=== PATIENT | female | born 1945 | race American Indian/Alaskan Native ===

== ENCOUNTER 2017-11-27 14:39 | Emergency (ER) | payer MEDICARE, OTHER ==
[2017-11-27] MEDS ORDERED: CATAPRES PO ONE (15:27)
[2017-11-27] MEDS ORDERED: CATAPRES ONE (15:30)
--- NOTE | 2017-11-27 16:47 | XRay Report ---
FINAL REPORT PROCEDURE: XR CHEST ROUTINE 2V TECHNIQUE: PA and lateral chest radiographs were obtained. CPT 22410 HISTORY: Shortness of breath. COMPARISON: No prior studies are available for comparison. FINDINGS: Heart: The heart size is top-normal. Mediastinum/Vessels: Aortic calcification tortuosity. Lungs/Pleural space: 6 millimeter density in the right apex. Bony thorax: Mild degenerative changes of the spine. Other: IMPRESSION: The heart size is top-normal. Aortic calcification and tortuosity. 6 millimeter density in the right apex, could represent confluence of shadows and/or be osseous, cannot exclude pulmonary nodule. Consider chest CT.
[2017-11-27 16:50] LABS: Basophils % (Auto) 0.7 % (0.0-1.8); Eosinophils # (Auto) 0.2 K/mm3 (0.0-0.4); Eosinophils % (Auto) 3.5 % (0.0-4.3); Hematocrit 38.6 % (30.3-42.9); Hemoglobin 12.5 gm/dl (10.1-14.3); Lymphocytes # (Auto) 1.7 K/mm3 (1.2-5.4); Lymphocytes % (Auto) 24.3 % (13.4-35.0); Mean Corpuscular HGB Conc 32 % (30-34); Mean Corpuscular Hemoglobin 26 pg (28-32); Mean Corpuscular Volume 80 fl (79-97); Monocytes # (Auto) 0.6 K/mm3 (0.0-0.8); Monocytes % (Auto) 8.7 % (0.0-7.3); Platelet Count 235 K/mm3 (140-440); Red Blood Count 4.81 M/mm3 (3.65-5.03); Red Cell Distribution Width 16.2 % (13.2-15.2)
[2017-11-27 17:27] LABS: Calcium 10.1 mg/dL (8.4-10.2)
--- NOTE | 2017-11-27 18:55 | Emergency Department Report ---
- General Chief Complaint: Upper Respiratory Infection Stated Complaint: FLU LIKE SYMPTOMS Time Seen by Provider: 11/27/17 18:50 Source: patient Mode of arrival: Ambulatory Limitations: No Limitations - History of Present Illness MD Complaint: cough -: Gradual, days(s) (3) Severity: moderate Quality: aching Consistency: constant Improves With: nothing Worsens With: activity Treatments Prior to Arrival: "cold medicine" - Related Data Home Medications Medication Instructions Recorded Confirmed Last Taken Atenolol 50 mg PO BID 11/27/17 11/27/17 Unknown Chlorthalidone 50 mg PO QDAY 11/27/17 11/27/17 Unknown Furosemide [Lasix TAB] 40 mg PO QDAY 11/27/17 11/27/17 Unknown Insulin Glargine,Hum.rec.anlog 50 unit SQ QAC 11/27/17 11/27/17 Unknown [Lantus] Insulin Lispro [HumaLOG VIAL] 100 units SUB-Q PRN 11/27/17 11/27/17 Unknown Lisinopril [Zestril TAB] 2.5 mg PO QDAY 11/27/17 11/27/17 Unknown Simvastatin 40 mg PO QDAY 11/27/17 11/27/17 Unknown cloNIDine-TTS PATCH [Catapres-Tts 1 patch TD Q7D 11/27/17 11/27/17 Unknown Patch] Allergies Allergy/AdvReac Type Severity Reaction Status Date / Time Iodinated Contrast- Oral and Allergy Unknown Verified 11/27/17 23:36 IV Dye ED Review of Systems ROS: Stated complaint: FLU LIKE SYMPTOMS Other details as noted in HPI Comment: All other systems reviewed and negative Constitutional: denies: chills, fever Eyes: denies: eye pain, eye discharge, vision change ENT: denies: ear pain, throat pain Respiratory: cough. denies: shortness of breath, wheezing Cardiovascular: denies: chest pain, palpitations Endocrine: no symptoms reported Gastrointestinal: denies: abdominal pain, nausea, diarrhea Genitourinary: denies: urgency, dysuria, discharge Musculoskeletal: denies: back pain, joint swelling, arthralgia Skin: denies: rash, lesions Neurological: denies: headache, weakness, paresthesias Psychiatric: denies: anxiety, depression Hematological/Lymphatic: denies: easy bleeding, easy bruising ED Past Medical Hx - Past Medical History Hx Hypertension: Yes Hx Diabetes: Yes Hx Arthritis: Yes - Surgical History Additional Surgical History: mastectomy, vaginal surgery? - Social History Smoking Status: Never Smoker Substance Use Type: None - Medications Home Medications: Home Medications Medication Instructions Recorded Confirmed Last Taken Type Atenolol 50 mg PO BID 11/27/17 11/27/17 Unknown History Chlorthalidone 50 mg PO QDAY 11/27/17 11/27/17 Unknown History Furosemide [Lasix TAB] 40 mg PO QDAY 11/27/17 11/27/17 Unknown History Insulin Glargine,Hum.rec.anlog 50 unit SQ QAC 11/27/17 11/27/17 Unknown History [Lantus] Insulin Lispro [HumaLOG VIAL] 100 units SUB-Q PRN 11/27/17 11/27/17 Unknown History Lisinopril [Zestril TAB] 2.5 mg PO QDAY 11/27/17 11/27/17 Unknown History Simvastatin 40 mg PO QDAY 11/27/17 11/27/17 Unknown History cloNIDine-TTS PATCH [Catapres-Tts 1 patch TD Q7D 11/27/17 11/27/17 Unknown History Patch] ED Physical Exam - General Limitations: No Limitations General appearance: alert, in no apparent distress - Head Head exam: Present: atraumatic, normocephalic - Eye Eye exam: Present: normal appearance - ENT ENT exam: Present: mucous membranes moist - Neck Neck exam: Present: normal inspection - Respiratory Respiratory exam: Present: rales (bilateral). Absent: respiratory distress - Cardiovascular Cardiovascular Exam: Present: regular rate, normal rhythm. Absent: systolic murmur, diastolic murmur, rubs, gallop - GI/Abdominal GI/Abdominal exam: Present: soft, normal bowel sounds - Extremities Exam Extremities exam: Present: normal inspection - Back Exam Back exam: Present: normal inspection - Neurological Exam Neurological exam: Present: alert, oriented X3 - Psychiatric Psychiatric exam: Present: normal affect, normal mood - Skin Skin exam: Present: warm, dry, intact, normal color. Absent: rash ED Course Vital Signs 11/27/17 11/27/17 11/27/17 15:16 15:32 17:26 Temperature 99.3 F Pulse Rate 77 75 73 Respiratory 20 16 Rate Blood Pressure 229/78 229/78 Blood Pressure 203/62 [Left] O2 Sat by Pulse 97 98 Oximetry 11/27/17 11/27/17 11/27/17 19:00 19:07 20:35 Temperature Pulse Rate 74 73 Respiratory 16 16 20 Rate Blood Pressure Blood Pressure 224/70 215/77 [Left] O2 Sat by Pulse 99 99 97 Oximetry 11/27/17 11/27/17 11/27/17 22:35 22:45 23:00 Temperature Pulse Rate 67 66 70 Respiratory 18 20 24 Rate Blood Pressure 195/66 208/69 Blood Pressure [Left] O2 Sat by Pulse 97 100 97 Oximetry 11/27/17 11/27/17 11/27/17 23:15 23:33 23:45 Temperature Pulse Rate 71 70 67 Respiratory 17 19 16 Rate Blood Pressure 208/69 197/65 197/65 Blood Pressure [Left] O2 Sat by Pulse 100 100 Oximetry 11/28/17 01:47 Temperature Pulse Rate 64 Respiratory Rate Blood Pressure 180/52 Blood Pressure [Left] O2 Sat by Pulse Oximetry - Reevaluation(s) Reevaluation #1: 11/28/17 01:20 Discussed need to get CT of chest re pulm nodule. Patient understood. ED Medical Decision Making - Lab Data Result diagrams: 11/27/17 16:08 11/27/17 16:08 - EKG Data -: EKG Interpreted by [facility] EKG shows normal: sinus rhythm Rate: normal - EKG Data When compared to previous EKG there are: previous EKG unavailable Interpretation: LVH - Radiology Data Radiology results: report reviewed RLL nodule Critical care attestation.: If time is entered above; I have spent that time in minutes in the direct care of this critically ill patient, excluding procedure time. ED Disposition Clinical Impression: Bronchitis, Pulmonary nodule, right Disposition: DC-01 TO HOME OR SELFCARE Is pt being admited?: No Does the pt Need Aspirin: No Condition: Stable Instructions: Chronic Bronchitis (ED) Referrals: KATE HOANG MD [Primary Care Provider] - 3-5 Days
[2017-11-27] MEDS ORDERED: LASIX IV ONE (19:23)
[2017-11-27] MEDS ORDERED: NACL ONE (23:28)
[2017-11-28] MEDS ORDERED: ROBITUSSIN PO ONE (01:20)
[2017-11-28] MEDS ORDERED: CATAPRES PO ONE (01:21)
--- NOTE | 2017-11-28 03:10 | Cat Scan Report ---
FINAL REPORT EXAM: CT CHEST WO CON HISTORY: Right lung nodule TECHNIQUE: Routine axial imaging was obtained of the thorax without IV contrast with sagittal and coronal reconstructions. The earlier chest radiograph was reviewed for correlation. FINDINGS: The lungs reveal emphysematous changes. In the lower lobes and lingula there is localized interstitial fibrosis. There is no evidence of nodularity in the right apex. There are no acute infiltrates or evidence of congestion. The heart is mildly enlarged. The thoracic aorta is mildly tortuous. There is no evidence of adenopathy. Pleural fluid is not seen. At the thoracic inlet there generalized enlargement of the thyroid gland compatible with thyromegaly. In the upper abdomen the adrenal glands are normal in size. The skeletal structures reveal multilevel disc degeneration in the thoracic spine. IMPRESSION: No evidence of nodularity in the right apex. Emphysematous changes with interstitial fibrotic changes in the lower lobes and lingula.
[2017-11-28] MEDS ORDERED: TESSALON PERLES PO ONE ×2 (04:10→04:13)
[2017-11-28 05:11] VITALS: BP 152/49
== END 2017-11-28 05:12 | disposition home or self-care (01) ==
LOC: ED 14:39
DX: J40 Bronchitis, not specified as acute or chronic (principal); R91.1 Solitary pulmonary nodule; I10 Essential (primary) hypertension; E11.9 Type 2 diabetes mellitus without complications; M19.90 Unspecified osteoarthritis, unspecified site; Z79.4 Long term (current) use of insulin; Z88.8 Allergy status to other drugs, medicaments and biological substances
CPT/HCPCS: 36415; 71046; 71250; 80048; 83880; 85025; 93005; 93010; 96374; 99284; J1940